=== PATIENT | female | born 1995 | race Caucasian/White ===

== ENCOUNTER 2023-04-26 10:48 | Emergency (ER) | payer MEDICARE ==
[~2023-04-26] VITALS: Ht 172.7 cm; Wt 89.4 kg
[2023-04-26 10:51] VITALS: O2SAT 100
[2023-04-26 12:05] LABS: CLARITY,URINE CLEAR (CLEAR); COLOR,URINE YELLOW (YELLOW); KETONES,URINE 1+ (NEGATIVE); LEUKOCYTE ESTERASE ,URINE NEGATIVE (NEGATIVE); NITRITE,URINE NEGATIVE (NEGATIVE); PROTEIN,URINE DIPSTICK 1+ (NEGATIVE)
[2023-04-26 12:06] LABS: BACTERIA,URINE MODERATE /HPF; EPITHELIAL CELLS,URINE MANY /LPF; RBC,URINE 0-5 /HPF (0-5)
[2023-04-26] MEDS ORDERED: ONDANSETRON ODT4 MG PO (12:29)
== END 2023-04-26 13:02 | disposition home or self-care (01) ==
LOC: ER 11:19
DX: O21.0 Mild hyperemesis gravidarum (principal); F90.9 Attention-deficit hyperactivity disorder, unspecified type
CPT/HCPCS: 81001; 99283